=== PATIENT | female | born 1985 | race Caucasian/White ===

== ENCOUNTER 2016-09-28 19:06 | Emergency (ER) | payer BC, OTHER ==
[2016-09-28 19:11] VITALS: BP 131/74; PULSE 93; RESP 18; TEMP 97.9; O2SAT 99
== END 2016-09-28 20:09 | disposition home or self-care (01) ==
LOC: ED 19:06
DX: J02.9 Acute pharyngitis, unspecified (principal)
CPT/HCPCS: 87430; 99282

== ENCOUNTER 2017-01-29 11:22 | Observation (INO) | payer BC ==
[2017-01-28 09:18] VITALS: O2SAT 98
[2017-01-29] MEDS ORDERED: SODIUM CHLORIDE 0.9% FLUSH 10 ML SOL IV SCH (11:45)
[2017-01-29] MEDS ORDERED: SODIUM CHLORIDE 0.9% 1000ML 1,000 ML IV ONE (11:55)
[2017-01-29] MEDS ORDERED: ONDANSETRON HCL 4 MG/2 ML SOL IV PRN (12:07)
[2017-01-29 12:45] VITALS: RESP 20
[2017-01-29] MEDS ORDERED: LACTATED RINGERS with DEXTROSE 1,000 ML IV SCH (13:00)
[2017-01-29 17:19] VITALS: TEMP 98.5
[2017-01-29 17:34] VITALS: BP 127/60; PULSE 78
== END 2017-01-29 16:30 | disposition home or self-care (01) ==
LOC: OB 11:22 → UNDOADMOB 11:52 → OB 11:52
PROVIDERS: ADMIT Family Medicine; ATTEND Family Medicine
DX: O16.9 Unspecified maternal hypertension, unspecified trimester (principal); O99.619 Diseases of the digestive system complicating pregnancy, unspecified trimester; K52.9 Noninfective gastroenteritis and colitis, unspecified; E86.0 Dehydration
CPT/HCPCS: 59025

== ENCOUNTER 2017-02-15 16:48 | Inpatient (IN) | payer BC ==
[2017-02-15] MEDS ORDERED: OXYTOCIN 10000 MU/ML SOL IM PRN (17:30)
[2017-02-15] MEDS ORDERED: METHYLERGONOVINE MALEATE 0.2 MG/ML SOL IM PRN (17:30)
[2017-02-15] MEDS ORDERED: LACTATED RINGERS 1,000 ML IV PRN (17:30)
[2017-02-15] MEDS ORDERED: MEPIVACAINE HCL 1% MPF 30 ML SOL INFIL PRN (17:30)
[2017-02-15] MEDS ORDERED: CARBOPROST 250 MCG/ML SOL IM PRN (17:30)
[2017-02-15] MEDS ORDERED: SODIUM CHLORIDE 0.9% FLUSH 10 ML SOL IV PRN (17:30)
[2017-02-15] MEDS ORDERED: FENTANYL 100MCG/2ML SOL IV PRN (17:30)
[2017-02-15] MEDS ORDERED: TERBUTALINE SULFATE 1 MG/ML SOL SC PRN (19:42)
[2017-02-15] MEDS ORDERED: OXYTOCIN 10000 MU/ML 20,000 MU in LACTATED RINGERS 1,000 ML IV SCH (19:45)
[2017-02-15] MEDS: MISOPROSTOL 100 MCG TAB VAG PRN ×2 (20:03→23:13)
[2017-02-16] MEDS: SODIUM CHLORIDE 0.9% FLUSH 10 ML SOL IV SCH ×3 (01:49→21:15)
[2017-02-16] MEDS ORDERED: DIPHENHYDRAMINE 25 MG CAP PO PRN (03:00)
[2017-02-16] MEDS ORDERED: LACTATED RINGERS 1,000 ML IV SCH (03:00)
[2017-02-16] MEDS ORDERED: NALOXONE HYDROCHLORIDE 0.4 MG/ML SOL IV PRN (03:00)
[2017-02-16] MEDS ORDERED: HYDROXYZINE HYDROCHLORIDE 25 MG/ML SOL IM PRN (03:00)
[2017-02-16] MEDS ORDERED: DIPHENHYDRAMINE 50 MG/ML SOL IM PRN (03:00)
[2017-02-16 03:45] LABS: BASOPHILS % (AUTO) 0 % (0-3); EOSINOPHILS % (AUTO) 1 % (0-9); HEMATOCRIT 32 % (35-47); MEAN CORPUSCULAR HGB CONC 33.3 gm/dl (32.0-36.0); MEAN CORPUSCULAR VOLUME 83 fL (81-99); MONOCYTES % (AUTO) 6.5 % (0-12); NEUTROPHILS % (AUTO) 77.7 % (37-80)
[2017-02-16] MEDS ORDERED: MORPHINE SULFATE 0.5 MG/ML SOL ONE (03:50)
[2017-02-16] MEDS: LACTATED RINGERS 1,000 ML IV SCH ×2 (05:15→14:41)
[2017-02-16] MEDS ORDERED: ONDANSETRON HCL 4 MG/2 ML 4 MG in SODIUM CHLORIDE 0.9% 100 ML 100 ML IV ONE (09:41)
[2017-02-16] MEDS ORDERED: ONDANSETRON HCL 4 MG/2 ML SOL ONE (09:42)
[2017-02-16] MEDS ORDERED: APAP/HYDROCODONE 325/5 TAB PO PRN (12:49)
[2017-02-16] MEDS ORDERED: BISACODYL 10 MG SUP PR PRN (12:49)
[2017-02-16] MEDS ORDERED: WITCH HAZEL 1 EA PAD TOP PRN (12:49)
[2017-02-16] MEDS ORDERED: BENZOCAINE/MENTHOL 1 SPR TOP PRN (12:49)
[2017-02-16] MEDS ORDERED: TEMAZEPAM 15MG 15 MG CAP PO PRN (12:49)
[2017-02-16] MEDS ORDERED: METHYLERGONOVINE MALEATE 0.2 MG TAB PO PRN (12:49)
[2017-02-16] MEDS ORDERED: FLEET ENEMA PR PRN (12:49)
[2017-02-16] MEDS: IBUPROFEN 600 MG TAB PO PRN (15:42)
[2017-02-16] MEDS: DOCUSATE SODIUM 100 MG SGL PO SCH (21:12)
[2017-02-17] MEDS: SODIUM CHLORIDE 0.9% FLUSH 10 ML SOL IV SCH ×2 (04:00→12:48)
[2017-02-17] MEDS: IBUPROFEN 600 MG TAB PO PRN ×3 (07:24→21:26)
[2017-02-17] MEDS: FOLIC ACID 1 MG TAB PO SCH (08:47)
[2017-02-17] MEDS: MULTIVITAMIN2 1 EA TAB PO SCH (08:47)
[2017-02-17] MEDS: DOCUSATE SODIUM 100 MG SGL PO SCH ×2 (08:47→21:26)
[2017-02-17 09:12] VITALS: RESP 18
[2017-02-17 23:50] VITALS: O2SAT 100
[2017-02-18] MEDS: DOCUSATE SODIUM 100 MG SGL PO SCH (09:00)
[2017-02-18] MEDS: IBUPROFEN 600 MG TAB PO PRN (09:01)
[2017-02-18] MEDS: FOLIC ACID 1 MG TAB PO SCH (09:01)
[2017-02-18] MEDS: MULTIVITAMIN2 1 EA TAB PO SCH (09:01)
[2017-02-18] MEDS ORDERED: INFLUENZA VIRUS VACCINE 0.5 ML SUS IM ONE ×2 (09:30→10:10)
[2017-02-18 10:55] VITALS: BP 131/80; PULSE 88; TEMP 97
== END 2017-02-18 11:05 | disposition home or self-care (01) | DRG 560 ==
LOC: OBSVTOIN 16:48 → OB 16:48 → EDSTATUS 18:00 → OB 02-17 17:08
PROVIDERS: ADMIT Family Medicine; ATTEND Family Medicine
PROC: 3E0P7GC Introduction of Other Therapeutic Substance into Female Reproductive, Via Natural or Artificial Opening (ICD-10-PCS; 2017-02-15)
PROC: 10D07Z6 Extraction of Products of Conception, Vacuum, Via Natural or Artificial Opening (ICD-10-PCS; principal; 2017-02-16)
PROC: 0KQM0ZZ Repair Perineum Muscle, Open Approach (ICD-10-PCS; 2017-02-16)
DX: O70.1 Second degree perineal laceration during delivery (principal); Z37.0 Single live birth; Z3A.39 39 weeks gestation of pregnancy
CPT/HCPCS: 36415; 59025; 85018; 85025; 90686; J0670; J2274; J2405; J2590; J3010; J3105; G0008

== ENCOUNTER 2018-05-20 20:38 | Emergency (ER) | payer BC ==
[2018-05-20 20:49] VITALS: RESP 20; TEMP 96.8
[2018-05-20] MEDS ORDERED: ALUMINUM/MAGNESIUM 30 ML SUS PO ONE (21:08)
[2018-05-20] MEDS ORDERED: LIDOCAINE HCL 2% (VISCOUS) 20 ML SOL MT ONE (21:08)
[2018-05-20] MEDS ORDERED: ALUMINUM/MAGNESIUM 30 ML SUS ONE (21:10)
[2018-05-20] MEDS ORDERED: LIDOCAINE HCL 2% (VISCOUS) 20 ML SOL ONE (21:10)
[2018-05-20 21:49] VITALS: BP 109/65; PULSE 106; O2SAT 98
== END 2018-05-20 21:40 | disposition home or self-care (01) ==
LOC: ED 20:38
DX: K21.9 Gastro-esophageal reflux disease without esophagitis (principal); R11.2 Nausea with vomiting, unspecified; Z3A.30 30 weeks gestation of pregnancy
CPT/HCPCS: 59025; 93005; 99283; A9270-GY

== ENCOUNTER 2018-06-23 11:56 | Emergency (ER) | payer MEDICAID, OTHER ==
[2018-06-23 12:07] VITALS: RESP 20
[2018-06-23] MEDS ORDERED: SODIUM CHLORIDE 0.9% 1000ML 1,000 ML IV ONE (12:25)
[2018-06-23] MEDS ORDERED: METOCLOPRAMIDE HCL 5 MG/ML 10 MG in SODIUM CHLORIDE 0.9% 50 ML 50 ML IV ONE (12:31)
[2018-06-23 12:36] LABS: BASOPHILS % (AUTO) 0 % (0-3); EOSINOPHILS % (AUTO) 0 % (0-9); HEMATOCRIT 34 % (35-47); HEMOGLOBIN 11.2 gm/dl (12.0-15.5); LYMPHOCYTES % (AUTO) 11.3 % (10-50); MEAN CORPUSCULAR HGB CONC 32.8 gm/dl (32.0-36.0); MEAN CORPUSCULAR VOLUME 82 fL (81-99); MONOCYTES % (AUTO) 4.8 % (0-12); NEUTROPHILS % (AUTO) 83.1 % (37-80)
[2018-06-23] MEDS ORDERED: METOCLOPRAMIDE HYDROCHLORIDE 5 MG/ML SOL ONE (12:37)
[2018-06-23 12:46] LABS: ALBUMIN 2.5 gm/dl (3.4-5.0); BILIRUBIN,TOTAL 0.2 mg/dl (0.2-1.0); CALCIUM 8.7 mg/dl (8.5-10.1); CARBON DIOXIDE 20.6 mEq/L (21-32); CREATININE 0.67 mg/dl (0.60-1.00); POTASSIUM 3.7 mMol/L (3.5-5.1); TOTAL PROTEIN 6.6 gm/dl (6.4-8.2)
[2018-06-23 12:48] VITALS: TEMP 97
[2018-06-23 12:56] LABS: APPEARANCE,URINE Clear; BILIRUBIN,URINE NEGATIVE (NEGATIVE); COLOR,URINE Yellow; GLUCOSE, URINE (UA) NEGATIVE (NEGATIVE); KETONES,URINE NEGATIVE (NEGATIVE); LEUKOCYTE ESTERASE ,URINE NEGATIVE (NEGATIVE); NITRATE,URINE NEGATIVE (NEGATIVE); OCCULT BLOOD,URINE NEGATIVE (NEG-TRACE); PH,URINE 5.5; UROBILINOGEN,URINE 0.2 (0.2-1.0 EU)
[2018-06-23 13:02] LABS: CRYSTALS NEGATIVE (0-3 AVE/HPF); RBC,URINE 0-2 (0-3AV/HPF); WBC,URINE 0-2 (0-5AV/HPF)
[2018-06-23 13:03] LABS: BACTERIA 1+ (< 1+)
[2018-06-23 13:44] VITALS: BP 119/66; PULSE 88; O2SAT 100
== END 2018-06-23 13:45 | disposition home or self-care (01) | DRG 392 ==
LOC: ED 11:56
DX: R11.2 Nausea with vomiting, unspecified (principal); R19.7 Diarrhea, unspecified; H53.8 Other visual disturbances; K52.9 Noninfective gastroenteritis and colitis, unspecified; Z3A.35 35 weeks gestation of pregnancy
CPT/HCPCS: 59025; 80053; 81001; 85025; 96365; 99070; 99283; 99284; J2765

== ENCOUNTER 2018-07-20 19:59 | Inpatient (IN) | payer BC, OTHER ==
[2018-07-20] MEDS ORDERED: MEPIVACAINE HCL 1% MPF 30 ML/VIAL SOL INFIL PRN (20:05)
[2018-07-20] MEDS ORDERED: CARBOPROST 250 MCG/ML SOL IM PRN (20:05)
[2018-07-20] MEDS ORDERED: OXYTOCIN 10000 MU/ML SOL IM PRN (20:05)
[2018-07-20] MEDS ORDERED: SODIUM CHLORIDE 0.9% FLUSH 10 ML SOL IV PRN (20:05)
[2018-07-20] MEDS ORDERED: METHYLERGONOVINE MALEATE 0.2 MG/ML SOL IM PRN (20:05)
[2018-07-20] MEDS ORDERED: FENTANYL 100MCG/2ML SOL IV PRN (20:05)
[2018-07-20] MEDS ORDERED: LACTATED RINGERS 1,000 ML IV PRN (20:05)
[2018-07-20] MEDS: SODIUM CHLORIDE 0.9% FLUSH 10 ML SOL IV SCH (20:20)
[2018-07-20 20:32] LABS: BASOPHILS % (AUTO) 0 % (0-3); EOSINOPHILS % (AUTO) 1 % (0-9); HEMATOCRIT 35 % (35-47); HEMOGLOBIN 11.1 gm/dl (12.0-15.5); MEAN CORPUSCULAR HEMOGLOBIN 26.1 pg (27.0-32.0); MEAN CORPUSCULAR HGB CONC 32.2 gm/dl (32.0-36.0); MONOCYTES % (AUTO) 6.1 % (0-12); NEUTROPHILS % (AUTO) 72.9 % (37-80)
[2018-07-20 20:44] LABS: MEAN CORPUSCULAR VOLUME 81 fL (81-99)
[2018-07-21] MEDS: SODIUM CHLORIDE 0.9% FLUSH 10 ML SOL IV SCH ×3 (03:56→21:25)
[2018-07-21] MEDS ORDERED: BISACODYL 10 MG SUP PR PRN (05:36)
[2018-07-21] MEDS ORDERED: WITCH HAZEL 1 EA PAD TOP PRN (05:36)
[2018-07-21] MEDS ORDERED: FLEET ENEMA PR PRN (05:36)
[2018-07-21] MEDS ORDERED: METHYLERGONOVINE MALEATE 0.2 MG TAB PO PRN (05:36)
[2018-07-21] MEDS ORDERED: TEMAZEPAM 15MG 15 MG CAP PO PRN (05:36)
[2018-07-21] MEDS ORDERED: APAP/HYDROCODONE 1 EACH TABLET PO PRN (05:36)
[2018-07-21] MEDS ORDERED: BENZOCAINE/MENTHOL 1 SPR TOP PRN (05:36)
[2018-07-21] MEDS: IBUPROFEN 600 MG TAB PO PRN ×2 (06:03→17:55)
[2018-07-21] MEDS: DOCUSATE SODIUM 100 MG SGL PO SCH ×2 (08:42→21:25)
[2018-07-21] MEDS ORDERED: ACETAMINOPHEN 500 MG 500 MG TAB ONE ×3 (09:19→21:23)
[2018-07-21] MEDS: ACETAMINOPHEN 500 MG 500 MG TAB PO PRN ×3 (09:20→21:25)
[2018-07-22] MEDS: IBUPROFEN 600 MG TAB PO PRN ×3 (03:24→15:52)
[2018-07-22] MEDS: SODIUM CHLORIDE 0.9% FLUSH 10 ML SOL IV SCH ×2 (06:05→13:46)
[2018-07-22] MEDS ORDERED: ACETAMINOPHEN 500 MG 500 MG TAB ONE (09:08)
[2018-07-22] MEDS: DOCUSATE SODIUM 100 MG SGL PO SCH ×2 (09:18→20:53)
[2018-07-22] MEDS: ACETAMINOPHEN 500 MG 500 MG TAB PO PRN (09:19)
[2018-07-22] MEDS ORDERED: ACETAMINOPHEN 160/5 ML SOL ONE (10:13)
[2018-07-22 21:11] VITALS: RESP 16
[2018-07-23] MEDS ORDERED: ACETAMINOPHEN 500 MG 500 MG TAB ONE (03:29)
[2018-07-23] MEDS: ACETAMINOPHEN 500 MG 500 MG TAB PO PRN (03:31)
[2018-07-23 03:37] VITALS: BP 117/72; PULSE 81; TEMP 97.6; O2SAT 97
[2018-07-23] MEDS: DOCUSATE SODIUM 100 MG SGL PO SCH (11:43)
== END 2018-07-23 10:30 | disposition home or self-care (01) | DRG 807 ==
LOC: OB 19:59 → OBSVTOIN 19:59 → OB 07-22 10:27
PROVIDERS: ADMIT Family Medicine; ATTEND Family Medicine
PROC: 0U7C7ZZ Dilation of Cervix, Via Natural or Artificial Opening (ICD-10-PCS; 2018-07-20)
PROC: 10E0XZZ Delivery of Products of Conception, External Approach (ICD-10-PCS; principal; 2018-07-21)
PROC: 0KQM0ZZ Repair Perineum Muscle, Open Approach (ICD-10-PCS; 2018-07-21)
DX: O80 Encounter for full-term uncomplicated delivery (principal); Z37.0 Single live birth; Z3A.39 39 weeks gestation of pregnancy
CPT/HCPCS: 36415; 85018; 85025; J0670; J2590; A9270-GY